=== PATIENT | female | born 1990 | race Asian ===

== ENCOUNTER → 2017-06-12 10:10 | Outpatient (CLI) | payer OTHER, SELFPAY ==
[2017-06-15 20:07] LABS: Testosterone, Free 0.76 ng/dL (0.10-0.85); Testosterone, Total 32 ng/dL (8-48)
[2017-06-16 08:41] LABS: Testosterone, % Free 2.39 % (0.50-2.80)
== END ==
PROVIDERS: Visit Provider Obstetrics & Gynecology
DX: E28.2 Polycystic ovarian syndrome (principal)
CPT/HCPCS: 36415; 84402; 84403

== ENCOUNTER → 2018-01-02 15:48 | Outpatient (CLI) | payer OTHER, SELFPAY ==
[2018-01-02 17:35] LABS: hCG Titer Quant., Serum 2887 mIU/mL (<9 non-preg)
[2018-01-02 18:36] LABS: Chlamydia Trachomatis by PCR Negative (Negative); Neisserai gonorrhoeae by PCR Negative (Negative); Probe Check PASS; Sample Adequacy Control PASS; Specimen Processing Control PASS
== END ==
PROVIDERS: Visit Provider Obstetrics & Gynecology
DX: Z32.01 Encounter for pregnancy test, result positive (principal); Z11.3 Encounter for screening for infections with a predominantly sexual mode of transmission
CPT/HCPCS: 36415; 84702; 87491; 87591

== ENCOUNTER → 2018-01-14 11:00 | Outpatient (CLI) | payer OTHER, SELFPAY ==
[2018-01-14 11:55] LABS: Color, Urine Yellow (Yellow); Glucose, Dipstick Normal (Normal); Ketone-Dipstick Negative (Negative); Leukocyte Esterase-Dipstick 25 /ul (Negative); Nitrite-Dipstick Negative (Negative); Occult Blood-Urine 10 /ul (Negative); Protein-Dipstick Negative (Negative); Urine Bilirubin Dipstick Negative (Negative); Urine Clarity Sl. Cloudy (Clear); Urine Urobilinogen Normal (Normal)
[2018-01-14 12:00] LABS: Amphetamine Urine VISTA NEGATIVE (<1000 ng/mL); Barbiturate Urine VISTA NEGATIVE (< 200 ng/mL); Benzodiazepine Urine VISTA NEGATIVE (< 200 ng/mL); Cocaine Urine VISTA NEGATIVE (< 300 ng/mL); Ecstacy Urine VISTA NEGATIVE (< 500 ng/mL); Methadone Urine VISTA NEGATIVE (< 300 ng/mL); PCP Urine VISTA NEGATIVE (< 25 ng/mL); THC Urine VISTA NEGATIVE (< 50 ng/mL); Vista UDS pH Range 5
[2018-01-14 12:07] LABS: COTININE Drug Screen Negative (<200 ng/mL)
[2018-01-14 12:23] LABS: Absolute Lymphocyte Count 2.49 X10^3/ul (0.83-4.51); Basophil# 0.04 X10^3/uL; Basophil% 0.5 % (0-1); Eosinophil# 0.08 X10^3/uL; Hematocrit 40.3 % (37-47); Lymphocyte # 2.49 X10^3/ul (4.0); Lymphocyte % 30.6 % (19-41); Mean Corp Hgb Conc 34.7 g/gl (32-36); Mean Corpuscular Hgb 30.1 pg (27.0-32.0); Mean Corpuscular Volume 86.7 fL (81-99); Mean Platelet Vol. 11.1 fl (6.2-12.0); Monocyte# 0.53 X10^3/uL; Monocyte% 6.5 % (0-10); Neutrophil # 4.98 X10^3/uL (2.7-7.7); Neutrophil % 61.3 % (47-70); Platelet Count 284 K/mm3 (150-450); RBC Distribution Width CV 12.2 % (11.6-14.6); RBC Distribution Width SD 38.5 fl (35.1-43.9); Red Blood Count 4.65 M/mm3 (4.2-5.4); White Blood Count 8.1 K/mm3 (4.4-11.0)
[2018-01-14 12:25] LABS: POSITIVE COUNT NO; POSITIVE DIFFERENTIAL NO; POSITIVE MORPHOLOGY NO
[2018-01-14 12:53] LABS: Thyroid Stim Hormone (TSH) 1.05 uIU/mL (0.358-3.74)
[2018-01-14 13:02] LABS: HIV - WCH Non-Reactive (Nonreactive); Rubella IgG 123.7 IU/mL
[2018-01-15 07:36] LABS: HEPATITIS B SURFACE AG Negative (Negative); Hep C Antibodies <0.1 s/co ratio (0.0-0.9)
[2018-01-17 05:43] LABS: Prenatal RPR NONREACTIVE (NONREACTIVE)
== END ==
PROVIDERS: Visit Provider Obstetrics & Gynecology
DX: Z34.81 Encounter for supervision of other normal pregnancy, first trimester (principal)
CPT/HCPCS: 36415; 80307; 81002; 84443; 85025; 86703; 86762; 86803; 87340

== ENCOUNTER → 2018-06-11 09:02 | Outpatient (CLI) | payer OTHER, SELFPAY ==
[2018-06-11 10:39] LABS: Hematocrit 40.6 % (37-47); Hemoglobin 13.2 g/dl (12.0-15.0); Mean Corp Hgb Conc 32.5 g/gl (32-36); Mean Corpuscular Hgb 29.6 pg (27.0-32.0); Mean Platelet Vol. 10.9 fl (6.2-12.0); Platelet Count 238 K/mm3 (150-450); RBC Distribution Width CV 13.5 % (11.6-14.6); RBC Distribution Width SD 44.2 fl (35.1-43.9); Red Blood Count 4.46 M/mm3 (4.2-5.4); White Blood Count 8.3 K/mm3 (4.4-11.0)
[2018-06-11 10:40] LABS: Scan Indicated on CBC? Y/N NO
[2018-06-11 10:45] LABS: Glucose Challenge Gest 1H 50g 164 mg/dL (70-140)
== END ==
PROVIDERS: Visit Provider Obstetrics & Gynecology
DX: Z34.83 Encounter for supervision of other normal pregnancy, third trimester (principal)
CPT/HCPCS: 36415; 82950; 85027

== ENCOUNTER → 2018-06-16 09:43 | Outpatient (CLI) | payer OTHER, SELFPAY ==
[2018-06-16 11:46] LABS: Glucose GTT-Gestational 1 Hr 186 mg/dL (<190)
[2018-06-16 11:52] LABS: Glucose GTT-Gestation. Fasting 91 mg/dL (<105)
[2018-06-16 13:43] LABS: Glucose GTT-Gestational 2 Hr 175 mg/dL (<165)
[2018-06-16 13:53] LABS: Glucose GTT-Gestational 3 Hr 151 L (<145)
== END ==
PROVIDERS: Referring Provider Obstetrics & Gynecology; Visit Provider Obstetrics & Gynecology
DX: O99.810 Abnormal glucose complicating pregnancy (principal)
CPT/HCPCS: 36415; 82951; 82952

== ENCOUNTER 2018-07-03 12:00 | Outpatient (RCR) | payer OTHER, SELFPAY | END 2018-07-06 23:59 | LOC: DC 12:00 | PROVIDERS: Visit Provider Obstetrics & Gynecology | DX: O24.419 Gestational diabetes mellitus in pregnancy, unspecified control (principal) | CPT/HCPCS: 97802; G0108 ==

== ENCOUNTER 2018-08-04 11:30 | Outpatient (RCR) | payer OTHER, SELFPAY | END 2018-08-04 23:59 | disposition home or self-care (01) | LOC: DC 11:30 | PROVIDERS: Visit Provider Obstetrics & Gynecology | DX: O24.419 Gestational diabetes mellitus in pregnancy, unspecified control (principal) | CPT/HCPCS: 97802 ==

== ENCOUNTER → 2018-08-05 | Outpatient (CLI) | payer OTHER, SELFPAY | END | disposition home or self-care (01) | LOC: LABSPEC 12:01 | PROVIDERS: Visit Provider Obstetrics & Gynecology | DX: Z36.85 Encounter for antenatal screening for Streptococcus B (principal) | CPT/HCPCS: 87081 ==

== ENCOUNTER 2018-08-27 07:00 | Inpatient (IN) | payer OTHER, SELFPAY ==
[2018-08-27 07:31] VITALS: BMI 36.7
[2018-08-27] MEDS: Lactated Ringers 1,000 ML 50 ML IV ×4 (07:40→20:50)
[2018-08-27 08:12] LABS: Absolute Lymphocyte Count 2.01 X10^3/ul (0.83-4.51); Absolute Neutrophil Count 4.6 X10^3/uL (2.0-7.7); Basophil# 0.02 X10^3/uL; Basophil% 0.3 % (0-1); Eosinophil# 0.09 X10^3/uL; Eosinophils% 1.2 % (0-5); Hematocrit 34.9 % (37-47); Hemoglobin 11.8 g/dl (12.0-15.0); Lymphocyte # 2.01 X10^3/ul (4.0); Lymphocyte % 27.4 % (19-41); Mean Corp Hgb Conc 33.8 g/gl (32-36); Mean Corpuscular Hgb 28.9 pg (27.0-32.0); Mean Corpuscular Volume 85.3 fL (81-99); Mean Platelet Vol. 12.9 fl (6.2-12.0); Monocyte# 0.64 X10^3/uL; Monocyte% 8.7 % (0-10); Neutrophil # 4.55 X10^3/uL (2.7-7.7); Neutrophil % 62.1 % (47-70); POSITIVE COUNT NO; POSITIVE DIFFERENTIAL NO; POSITIVE MORPHOLOGY NO; Platelet Count 174 K/mm3 (150-450); RBC Distribution Width CV 13.6 % (11.6-14.6); Red Blood Count 4.09 M/mm3 (4.2-5.4); White Blood Count 7.3 K/mm3 (4.4-11.0)
[2018-08-27 08:21] LABS: Bedside Glucose 100 mg/dL (70-110)
[2018-08-27 08:21] LABS: Prothrombin Time (Protime)PT. 12.6 SECONDS (11.7-14.9)
[2018-08-27 08:22] LABS: Partial Thromboplast Time 27.7 Seconds (24.1-36.2)
[2018-08-27 08:25] LABS: AST(SGOT) 27 U/L (15-37); Alanine Aminotransfer ALT/SGPT 17 U/L (13-56); Creatinine, Serum 0.64 mg/dL (0.55-1.02); EST Glomerular Filtration Rate 118 mL/min (>60); Est Glom Filt Rate - Afr Amer 143 mL/min (>60); Estimated Creatinine Clearance 103.51 ml/min; Uric Acid 5.7 mg/dL (2.6-6.0)
[2018-08-27] MEDS: Oxytocin 30 units/NS 500 ml 30 UNITS/500 ML IV.SOLN IV (09:15)
[2018-08-27 09:36] LABS: Bedside Glucose 88 mg/dL (70-110)
[2018-08-27] MEDS: Labetalol 100 MG/20 ML Vial 20 MG IV (09:37)
[2018-08-27] MEDS: Labetalol 200 MG Tablet PO (09:39)
[2018-08-27 10:28] VITALS: BP 169/92; PULSE 69
[2018-08-27 10:54] LABS: Protein, Urine (Random) 227.1 mg/dL (<11.9); Protein:Creat Ratio 3693 mg/g CRE (0-200)
[2018-08-27 10:59] VITALS: BP 158/91; PULSE 80
[2018-08-27] MEDS: hydrALAZINE 10 MG Tablet 20 MG PO (10:59)
--- NOTE | 2018-08-27 11:33 | PCM.PN.OB ---
Subjective: No complaints. No headaches. Not feeling contractions strongly. Objective: BPs elevated 150s/80-90s now - Physical Exam General: Alert, Oriented x3, Cooperative, No apparent distress Cardiovascular: Regular rate, Regular Rhythm Abdomen: Soft, Non Tender, Non-Distended, Gravid, Appropriate for Gestational Age Extremities: Edema - 1+ LE Skin: No rashes Neurological: Neuro grossly intact Psych/Mental Status: Normal Affect Comment: CE 4-5 cm 80% -3 Vital Signs Pulse BP 80 158/91 H 08/27/18 10:59 08/27/18 10:59 Weight: 201 lb Body Mass Index (BMI) 36.7 Laboratory Tests Past 24 Hrs 08/27/18 08/27/18 08/27/18 07:40 07:40 07:40 WBC 7.3 RBC 4.09 L Hgb 11.8 L Hct 34.9 L MCV 85.3 MCH 28.9 MCHC 33.8 RDW 13.6 RDW Differential 42.0 Plt Count 174 MPV 12.9 H Immature Gran % (Auto) 0.300 Neut % (Auto) 62.1 Lymph % (Auto) 27.4 [place] % (Auto) 8.7 Eos % (Auto) 1.2 Baso % (Auto) 0.3 Absolute Neuts (auto) 4.6 Absolute Lymphs (auto) 2.01 Total Counted Not Reportable PT 12.6 INR 1.0 APTT 27.7 Creatinine Estim Creat Clear Calc Est GFR (MDRD) Af Amer Est GFR (MDRD) Non-Af Uric Acid AST ALT U Random Total Protein Urine Creatinine Protein/Creatinin Ratio Blood Type A POSITIVE Antibody Screen NEGATIVE 08/27/18 08/27/18 07:40 10:30 WBC RBC Hgb Hct MCV MCH MCHC RDW RDW Differential Plt Count MPV Immature Gran % (Auto) Neut % (Auto) Lymph % (Auto) [place] % (Auto) Eos % (Auto) Baso % (Auto) Absolute Neuts (auto) Absolute Lymphs (auto) Total Counted PT INR APTT Creatinine 0.64 Estim Creat Clear Calc 103.51 Est GFR (MDRD) Af Amer 143 Est GFR (MDRD) Non-Af 118 Uric Acid 5.7 AST 27 ALT 17 U Random Total Protein 227.1 H Urine Creatinine 61.50 Protein/Creatinin Ratio 3693 H Blood Type Antibody Screen POC Glucose 08/27/18 08/27/18 09:23 08:15 POC Glucose 88 100 Medical Necessity - Tobacco Use Smoking Status: Never smoker Assessment/Plan exhausted labetalol per hypertensive protocol. Stable on hydralazine. AROM performed with clear fluid noted. Pitocin started. FHR tracing CAT 1.
[2018-08-27 12:28] VITALS: BP 164/87; PULSE 80
[2018-08-27] MEDS: hydrALAZINE 20 MG/ML Vial 10 MG IV ×2 (12:28→23:42)
[2018-08-27 13:11] LABS: Bedside Glucose 78 mg/dL (70-110)
[2018-08-27] MEDS: fentaNYL-bupivacaine (epidural) 100 ML BAG EPIDURAL ×2 (14:02→19:04)
[2018-08-27 14:31] LABS: Bedside Glucose 84 mg/dL (70-110)
[2018-08-27 16:10] LABS: Bedside Glucose 77 mg/dL (70-110)
[2018-08-27 17:45] LABS: Bedside Glucose 67 mg/dL (70-110)
[2018-08-27 17:46] LABS: Bedside Glucose 79 mg/dL (70-110)
[2018-08-27 18:46] LABS: Bedside Glucose 78 mg/dL (70-110)
[2018-08-27 19:05] VITALS: BP 155/94; PULSE 97
[2018-08-27 19:56] LABS: Bedside Glucose 83 mg/dL (70-110)
[2018-08-27 22:01] LABS: Bedside Glucose 87 mg/dL (70-110)
[2018-08-27 22:01] LABS: Bedside Glucose 88 mg/dL (70-110)
[2018-08-27 22:51] LABS: Bedside Glucose 82 mg/dL (70-110)
[2018-08-27 23:36] LABS: Bedside Glucose 81 mg/dL (70-110)
[2018-08-27 23:42] VITALS: BP 166/83; PULSE 94
[2018-08-28] VITALS (13 sets, daily range): BP systolic 138–167; BP diastolic 72–93; PULSE 80–106; RESP 16–19; TEMP 36.1–37.3
[2018-08-28] MEDS: fentaNYL-bupivacaine (epidural) 100 ML BAG EPIDURAL ×2 (00:11→04:56)
[2018-08-28 01:01] LABS: Bedside Glucose 91 mg/dL (70-110)
[2018-08-28 02:00] LABS: Bedside Glucose 100 mg/dL (70-110)
[2018-08-28 03:26] LABS: Bedside Glucose 110 mg/dL (70-110)
[2018-08-28] MEDS: Lactated Ringers 1,000 ML 50 ML IV (03:53)
[2018-08-28 06:06] LABS: Bedside Glucose 104 mg/dL (70-110)
[2018-08-28 06:06] LABS: Bedside Glucose 113 mg/dL (70-110)
--- NOTE | 2018-08-28 06:19 | PN.OBGYN_ITS ---
Subjective: Fatigued. Epidural working well. Objective: Afeb VSS BPs elevated but reasonable with medication. - Physical Exam General: Alert, Oriented x3, Cooperative, No apparent distress Abdomen: Soft, Non Tender, Non-Distended, Gravid, Appropriate for Gestational Age Extremities: Edema - 1+ Skin: No rashes Neurological: Neuro grossly intact Psych/Mental Status: Normal Affect Comment: FD Vital Signs Pulse BP 96 143/72 H 08/28/18 03:52 08/28/18 03:52 Weight: 201 lb Body Mass Index (BMI) 36.7 Intake and Output for Last 24 Hours 08/26/18 08/27/18 08/28/18 23:59 23:59 23:59 Intake Total 2642 / 2642 Output Total 400 / 400 Balance 2242 / 2242 Laboratory Tests Past 24 Hrs 08/27/18 08/27/18 08/27/18 07:40 07:40 07:40 WBC 7.3 RBC 4.09 L Hgb 11.8 L Hct 34.9 L MCV 85.3 MCH 28.9 MCHC 33.8 RDW 13.6 RDW Differential 42.0 Plt Count 174 MPV 12.9 H Immature Gran % (Auto) 0.300 Neut % (Auto) 62.1 Lymph % (Auto) 27.4 [place] % (Auto) 8.7 Eos % (Auto) 1.2 Baso % (Auto) 0.3 Absolute Neuts (auto) 4.6 Absolute Lymphs (auto) 2.01 Total Counted Not Reportable PT 12.6 INR 1.0 APTT 27.7 Creatinine Estim Creat Clear Calc Est GFR (MDRD) Af Amer Est GFR (MDRD) Non-Af Uric Acid AST ALT U Random Total Protein Urine Creatinine Protein/Creatinin Ratio Blood Type A POSITIVE Antibody Screen NEGATIVE 08/27/18 08/27/18 07:40 10:30 WBC RBC Hgb Hct MCV MCH MCHC RDW RDW Differential Plt Count MPV Immature Gran % (Auto) Neut % (Auto) Lymph % (Auto) [place] % (Auto) Eos % (Auto) Baso % (Auto) Absolute Neuts (auto) Absolute Lymphs (auto) Total Counted PT INR APTT Creatinine 0.64 Estim Creat Clear Calc 103.51 Est GFR (MDRD) Af Amer 143 Est GFR (MDRD) Non-Af 118 Uric Acid 5.7 AST 27 ALT 17 U Random Total Protein 227.1 H Urine Creatinine 61.50 Protein/Creatinin Ratio 3693 H Blood Type Antibody Screen POC Glucose 08/28/18 08/28/18 08/28/18 05:05 04:03 03:01 POC Glucose 104 113 H 110 08/28/18 08/28/18 08/27/18 01:54 00:50 23:32 POC Glucose 100 91 81 08/27/18 08/27/18 08/27/18 22:40 21:30 20:21 POC Glucose 82 88 87 08/27/18 08/27/18 08/27/18 19:30 18:33 17:31 POC Glucose 83 78 79 08/27/18 08/27/18 08/27/18 17:05 16:02 14:23 POC Glucose 67 L 77 84 08/27/18 08/27/18 08/27/18 13:01 09:23 08:15 POC Glucose 78 88 100 Medical Necessity - Tobacco Use Smoking Status: Never smoker Assessment/Plan Now has been pushing for about 3 hours with some progress made. FHR tracing overall reassuring. Will continue pushing efforts and when +2 station will consider Vacuum assist.
[2018-08-28] MEDS: Oxytocin 30 units/NS 500 ml 30 UNITS/500 ML IV.SOLN 334 UNITS IV (07:20)
--- NOTE | 2018-08-28 07:44 | PCM.OPRPT ---
Problem List (1) Gestational diabetes mellitus (GDM) Status: Chronic Qualifiers: Gestational diabetes mellitus control: diet-controlled Trimester: third trimester Qualified Code(s): O24.410 - Gestational diabetes mellitus in , diet controlled (2) Gestational hypertension Status: Acute Qualifiers: Trimester: third trimester Qualified Code(s): O13.3 - Gestational [-induced] hypertension without significant proteinuria, third trimester Vaginal Delivery Maternal Presentation: Medically Indicated Induction 39 weeks admitted for induction of labor secondary to gestational diabetes and hypertension Method of Induction: Pitocin Medical Reason for Induction: Gestational Hypertension, - - Gestational Diabetes Amniotic Membrane Rupture Type: Artificial Rupture of Membrane time: 1030 Amniotic Fluid Description: Clear Final THAI: 09/03/18 Final THAI Source: [place] <20 weeks Gestational age: 39 Weeks and 1 Days Date of Procedure: 08/28/18 Pre-Operative Diagnosis: labor Post-Operative Diagnosis: same Surgery/ Procedure Performed: Spontaneous Vaginal Delivery Anesthesiologist: Roger Brown Type of Anesthesia: Epidural Description of Procedure: Admitted at 4 cm dilation. Blood pressures elevated in 160s/100 range. No signs of preeclampsia. PIH labs normal except elevated protein to creatinine ratio. Progressed with pitocin to FD over 20 hours then pushed for 4 hours to deliver a live male without complication. There was a loose nuchal cord that was reduced prior to delivering the body. Delayed cord clamping was employed. There was an active cry within 2 minutes of delivery. The cord was clamped and cut and baby placed on mom's chest for skin to skin time. The placenta delivered spontaneously intact with a centrally located 3VC. The uterus contracted well. Inspection revealed a second degree posterior vaginal/perineal tear which was repaired with 2-0 Vicryl suture. Presentation: Vertex Placental Delivery Description: Spontaneous Placenta Disposition: [facility] Percentage of Placenta Abruption: 0 Cord Vessel Description: 3 Vessels Nuchal Cord Compression: Without compression Cord Entanglement: Around neck x 1, loose Drain: [place] to straight drain Estimated Blood Loss: 300cc Infant A gender: Male (1 minute): 8 (5 minute): 9 Episiotomy Description: None Laceration: Midline Medications given after delivery: IV Pitocin Complications: None
[2018-08-28] MEDS: Oxytocin 30 units/NS 500 ml 30 UNITS/500 ML IV.SOLN 167 UNITS IV (07:50)
--- NOTE | 2018-08-28 07:52 | DCINST_ITS ---
Discharge Diet: No Restrictions Discharge Activity: Return to Normal Activity, No Restrictions, May Drive, May Shower Return to work on:: 10/13/18 May resume sexual activity in: 6-8 weeks Call your doctor if your incision/area has: Sudden Increased Bleeding, Increased Pain/ Swelling, Foul Smelling Discharge Call your doctor if you observe: Fever of 101 or Higher, Inability to urinate, Inability to have a bowel movement, Using more than one pad per hour, Shortness of breath, Chest pain, Calf discomfort, Uncontrolled pain Cleanse incision/area with: Soap & Water Additional Instructions: If you experience any of the following, contact your healthcare provider. * Bleeding that soaks a pad every hour for 2 hours * Fever 100.4 or higher * Unrelieved incision or abdominal pain * Swelling, redness, discharge or bleeding from your incision or episiotomy site * Your incision begins to separate * Problems urinating (including inability to urinate or burning while urinating). * Visual changes * Severe headache * Flu-like symptoms * Pain or redness in one of both of your breasts * Pain, warmth, tenderness or swelling in your legs, especially the calf area * Frequent nausea and vomiting * Symptoms of depression or anxiety If you experience any of the following, call 911 or go to the nearest Emergency Room. * Chest pain * Problems breathing * Seizure activity * Partial or complete paralysis of a body part, slurred speech, weakness or drooping of the face, or a sudden inability to walk or hold your balance Allergies/Adverse Reactions: Allergies No Known Allergies Allergy (Verified 08/27/18 08:21) Medications to take at Discharge Pnv No.95/Ferrous Fum/Folic AC [ Caplet] 08/27/18 Ibuprofen 600 mg PO 4X/DAY #30 tab 08/28/18 hydrALAZINE [Apresoline] 20 mg PO Q8H #60 tab 08/28/18 The following prescriptions were given: hydrALAZINE [Apresoline] 20 mg PO Q8H #60 tab Ibuprofen 600 mg PO 4X/DAY #30 tab Please Follow Up With: Quan Valencia MD When: one week Primary Care Physician: Care Physician,No Primary [Primary Care Provider] - Test Results: Test results from this visit will be discussed in further detail at your follow- up appointment, if applicable. Proposed Discharge Date: 08/30/18
[2018-08-28 07:56] LABS: Bedside Glucose 111 mg/dL (70-110)
[2018-08-28 09:15] LABS: Bedside Glucose 111 mg/dL (70-110)
[2018-08-28] MEDS: Prenatal Vits Tablet 1 TABLET PO (11:52)
[2018-08-28] MEDS: Ibuprofen 600 MG Tablet PO ×2 (11:52→18:43)
--- NOTE | 2018-08-28 13:03 | NURSING ---
1145 albert harris dc'ed; pt oob up to chair pt gait steady; bed changed
--- NOTE | 2018-08-28 15:01 | NURSING ---
pt up to shower
[2018-08-28] MEDS: Acetaminophen 500 MG Tablet 1000 MG PO ×2 (15:42→23:59)
--- NOTE | 2018-08-28 22:53 | NURSING ---
@ 2031 Dr. Bacon called and made aware of pt's blood pressure readings. Hydralazine PO dose given and Dr. Bacon states to continue to monitor pt's blood pressures every 10 minutes until target blood pressure met. Dr. Bacon states to call if target measures not met within 1 hour. no new orders at this time
[2018-08-29] VITALS (10 sets, daily range): BP systolic 136–158; BP diastolic 74–88; PULSE 84–100; RESP 17–20; TEMP 36.4–37.9; O2SAT 97
[2018-08-29] MEDS: Ibuprofen 600 MG Tablet PO ×3 (03:11→18:47)
[2018-08-29 06:02] LABS: Hematocrit 32.2 % (37-47); Hemoglobin 10.7 g/dl (12.0-15.0); Mean Corp Hgb Conc 33.2 g/gl (32-36); Mean Corpuscular Hgb 28.2 pg (27.0-32.0); Mean Corpuscular Volume 84.7 fL (81-99); Mean Platelet Vol. 11.6 fl (6.2-12.0); Platelet Count 148 K/mm3 (150-450); RBC Distribution Width CV 14.2 % (11.6-14.6); Scan Indicated on CBC? Y/N NO; White Blood Count 16.9 K/mm3 (4.4-11.0)
--- NOTE | 2018-08-29 08:01 | PCM.PN.OB ---
Patient Problems: Active and Suspected Problems Gestational hypertension (Acute) Subjective: PPD#1 Some pain at perineum. denies cramping. Baby is not nursing well yet. Objective: sitting up in rocking chair holding sleeping baby. - Physical Exam General: Alert, Oriented x3, Cooperative, No apparent distress HEENT: Atraumatic Neck: Supple Psych/Mental Status: Normal Affect Vital Signs Temp Pulse Resp BP 97.6 F L 90 18 136/81 H 08/29/18 03:10 08/29/18 03:11 08/29/18 03:10 08/29/18 03:11 Oxygen Delivery Method Room Air Weight: 91.172 kg Body Mass Index (BMI) 36.7 Intake and Output for Last 24 Hours 08/27/18 08/28/18 08/29/18 23:59 23:59 23:59 Intake Total 2642 / 2642 2952 / 2952 Output Total 400 / 400 1300 / 1300 Balance 2242 / 2242 1652 / 1652 Laboratory Tests Past 24 Hrs 08/29/18 05:50 WBC 16.9 H RBC 3.80 L Hgb 10.7 L Hct 32.2 L MCV 84.7 MCH 28.2 MCHC 33.2 RDW 14.2 RDW Differential 44.0 H Plt Count 148 L MPV 11.6 POC Glucose 08/28/18 09:09 POC Glucose 111 H Medical Necessity - Tobacco Use Smoking Status: Never smoker Assessment/Plan All Active Problems Gestational hypertension (Acute) PPD#1 Stable pp. Baby is not nursing very well yet. continue care.
[2018-08-29] MEDS: Acetaminophen 500 MG Tablet 1000 MG PO (08:26)
[2018-08-29] MEDS: Prenatal Vits Tablet 1 TABLET PO (10:13)
[2018-08-30] VITALS (8 sets, daily range): BP systolic 138–165; BP diastolic 74–99; PULSE 86–98; RESP 16–18; TEMP 36.9–37.6; O2SAT 96
[2018-08-30] MEDS: Ibuprofen 600 MG Tablet PO ×3 (03:10→18:55)
--- NOTE | 2018-08-30 08:03 | PCM.PN.OB ---
Patient Problems: Active and Suspected Problems Gestational hypertension (Acute) - Physical Exam General: Alert, Oriented x3, Cooperative - Tearful. Overwhelmed by baby's need of bili lights, poor nursing. baby tongue-tied. HEENT: Atraumatic Neck: Supple Abdomen: Soft Neurological: Cranial nerves II-XII grossly intact Psych/Mental Status: Normal Affect, Appropriate - tearful in response to baby's issues. Vital Signs Temp Pulse Resp BP Pulse Ox 98.6 F 90 16 150/74 H 96 08/30/18 03:15 08/30/18 03:15 08/30/18 03:15 08/30/18 03:15 08/30/18 03:15 Oxygen Delivery Method Room Air Weight: 91.172 kg Body Mass Index (BMI) 36.7 Intake and Output for Last 24 Hours 08/28/18 08/29/18 08/30/18 23:59 23:59 23:59 Intake Total 2952 / 2952 Output Total 1300 / 1300 Balance 1652 / 1652 Medical Necessity - Tobacco Use Smoking Status: Never smoker Assessment/Plan All Active Problems Gestational hypertension (Acute) PPD#2 Stable pp. Baby not nursing very well yet. Tongue tied, outpt mgmt planned. Baby also now under bili lights-- and likely to need to stay today for this issue. Will dischg Deborah to home / to hotel. RTO as planned for check up. PIH. BPs in 130-150s / 70-80 No RX given for PIH. Will follow up BP outpt.
[2018-08-30] MEDS: Senna/Docusate Sodium 1 Tablet PO (11:06)
[2018-08-30] MEDS: Prenatal Vits Tablet 1 TABLET PO (11:11)
--- NOTE | 2018-08-30 19:16 | NURSING ---
1200 Dr. Bacon notified of elevated blood pressure prior to administration of 1100 dose of Hydralazine. No new orders.
--- NOTE | 2018-08-30 20:03 | NURSING ---
Pt to courtesy room status
== END 2018-08-30 20:00 | disposition home or self-care (01) | DRG 807 ==
PROVIDERS: Admitting Provider Obstetrics & Gynecology; Referring Provider Obstetrics & Gynecology; Visit Provider Obstetrics & Gynecology
DX: O24.420 Gestational diabetes mellitus in childbirth, diet controlled (principal); Z37.0 Single live birth; O13.4 Gestational [pregnancy-induced] hypertension without significant proteinuria, complicating childbirth; Z3A.39 39 weeks gestation of pregnancy; O69.81X0 Labor and delivery complicated by cord around neck, without compression, not applicable or unspecified; O70.1 Second degree perineal laceration during delivery
CPT/HCPCS: 59025; 59050; 82565; 82570; 82962; 84156; 84450; 84460; 84550; 85025; 85027; 85610; 85730; 86850; 86900; 99218; J7120; G0378